=== PATIENT | male | born 1955 | race Caucasian/White ===

== ENCOUNTER 2016-12-12 23:20 | Emergency (ER) | payer BC ==
[~2016-12-12] VITALS: Ht 182.9 cm; Wt 95.0 kg
[~2016-12-12 23:20] MED LIST: LEVO.1 PO
[2016-12-12 23:57] VITALS: BP 139/82; PULSE 81; RESP 20; TEMP 97.5; O2SAT 98
[2016-12-13 00:22] LABS: AUTOMATED NEUTROPHIL # 5.1 TH/MM3 (1.8-7.7); BASOPHIL # 0.1 TH/MM3 (0-0.2); BASOPHIL % 0.8 % (0.0-2.0); EOSINOPHIL # 0.2 TH/MM3 (0-0.4); EOSINOPHIL % 2.2 % (0.0-4.0); HEMATOCRIT 46.4 % (39.0-51.0); HEMO FLAGS DIFF FINAL; LYMPH % 24.6 % (9.0-44.0); LYMPHOCYTE # 1.9 TH/MM3 (1.0-4.8); MEAN CELL VOLUME 91.8 FL (80.0-100.0); MEAN CORPUSCULAR HEMOGLOBIN 30.9 PG (27.0-34.0); MEAN CORPUSCULAR HGB CONC 33.7 % (32.0-36.0); MONO % 7.9 % (0.0-8.0); NEUT % 64.5 % (16.0-70.0); PLATELET COUNT 185 TH/MM3 (150-450); RED BLOOD COUNT 5.05 MIL/MM3 (4.50-5.90); RED CELL DISTRIBUTION WIDTH 13.8 % (11.6-17.2); WHITE BLOOD COUNT 7.8 TH/MM3 (4.0-11.0)
[2016-12-13 00:32] LABS: APTT (PATIENT) 27.5 SEC (24.3-30.1); PROTHROMBIN TIME - PATIENT 10.9 SEC (9.8-11.6)
--- NOTE | 2016-12-13 01:04 | RADRPT ---
EXAM DATE/TIME: 12/13/2016 00:42 [facility] COMPARISON: CT BRAIN W/O CONTRAST, July 01, 2016, 9:17. INDICATIONS : Found unresponsive. ETOH RADIATION DOSE: 69.15 CTDIvol (mGy) MEDICAL HISTORY : None SURGICAL HISTORY : None. ENCOUNTER: Initial ACUITY: 1 day PAIN SCALE: 0/10 LOCATION: cranial TECHNIQUE: Multiple contiguous axial images were obtained of the head. Using automated exposure control and adj ustment of the mA and/or kV according to patient size, radiation dose was kept as low as reasonably a chievable to obtain optimal diagnostic quality images. FINDINGS: CEREBRUM: The ventricles are normal for age. No evidence of midline shift, mass lesion, hemorrhage or acute in farction. No extra-axial fluid collections are seen. POSTERIOR FOSSA: The cerebellum and brainstem are intact. The 4th ventricle is midline. The cerebellopontine angle i s unremarkable. EXTRACRANIAL: The visualized portion of the orbits is intact. SKULL: The calvaria is intact. No evidence of skull fracture. CONCLUSION: Normal examination. Diffuse atrophy is unchanged. Trevor Ray MD on December 13, 2016 at 1:02 Board Certified Radiologist. This report was verified electronically.
--- NOTE | 2016-12-13 01:07 | RADRPT ---
EXAM DATE/TIME: 12/13/2016 00:42 [facility] COMPARISON: CT CERVICAL SPINE W/O CONTRAST, July 01, 2016, 9:17. INDICATIONS : Found unresponsive. ETOH RADIATION DOSE: 29.94 CTDIvol (mGy) MEDICAL HISTORY : None SURGICAL HISTORY : None. ENCOUNTER: Initial ACUITY: 1 day PAIN SCALE: 0/10 LOCATION: neck TECHNIQUE: Volumetric scanning of the cervical spine was performed. Multiplanar reconstructions in the sagittal, coronal and oblique axial planes were performed. Using automated exposure control and adjustment o f the mA and/or kV according to patient size, radiation dose was kept as low as reasonably achievable to obtain optimal diagnostic quality images. FINDINGS: VERTEBRAE: Normal vertebral body height. ALIGNMENT: No evidence of subluxation. C2-C3: The bony spinal canal is normal in size. No evidence of disc bulge or herniation. The neural forami na are bilaterally patent. C3-C4: The bony spinal canal is normal in size. No evidence of disc bulge or herniation. The neural forami na are bilaterally patent. C4-C5: The bony spinal canal is normal in size. No evidence of disc bulge or herniation. The neural forami na are bilaterally patent. C5-C6: The bony spinal canal is normal in size. No evidence of disc bulge or herniation. The neural forami na are bilaterally patent. C6-C7: The bony spinal canal is normal in size. No evidence of disc bulge or herniation. The neural forami na are bilaterally patent. C7-T1: The bony spinal canal is normal in size. No evidence of disc bulge or herniation. The neural forami na are bilaterally patent. CONCLUSION: Normal examination. Trevor Ray MD on December 13, 2016 at 1:05 Board Certified Radiologist. This report was verified electronically.
[2016-12-13 01:17] LABS: BICARBONATE 28.2 MEQ/L (21.0-32.0); POTASSIUM 3.8 MEQ/L (3.5-5.1)
--- NOTE | 2016-12-13 01:19 | RADRPT ---
EXAM DATE/TIME: 12/13/2016 00:44 [facility] COMPARISON: CT BRAIN W/O CONTRAST, December 13, 2016, 0:42. CT BRAIN W/O CONTRAST, July 01, 2016, 9:17. INDICATIONS : Found unresponsive. ETOH RADIATION DOSE: 36.81 CTDIvol (mGy) MEDICAL HISTORY : None SURGICAL HISTORY : None. ENCOUNTER: Initial ACUITY: 2 days PAIN SCORE: 0/10 LOCATION: facial TECHNIQUE: Volumetric scanning of the facial bones was performed. Using automated exposure control and adjustme nt of the mA and/or kV according to patient size, radiation dose was kept as low as reasonably achiev able to obtain optimal diagnostic quality images. FINDINGS: Both of the mandibular condyles are anterior to the fossa likely positionally related. ORBITS: The orbital and infraorbital osseous structures are intact. The retroconal structures have a normal configuration. No radiopaque foreign bodies are seen. NASAL BONE: The maxillary spine are intact. Small displacement of the left nasal bone is unchanged from 09/20. ZYGOMATIC ARCHES: Symmetric without evidence of fracture. SINUSES: The maxillary, ethmoid and frontal sinuses are intact. No air-fluid levels seen. NASAL CAVITY: The nasal septum is intact and midline. The lacrimal ducts are intact. SOFT TISSUES: No radiopaque foreign bodies seen. No soft-tissue swelling is seen. INTRACRANIAL: No intracranial air seen. CRIBIFORM PLATE: Grossly intact. CONCLUSION: Small lucency at the base of the left nasal bones unchanged since September 2014. Over the mandibular con dyles are anteriorly displaced compared to the fossa likely positional. Trevor Ray MD on December 13, 2016 at 1:14 Board Certified Radiologist. This report was verified electronically.
[2016-12-13 01:56] VITALS: BP 111/62; PULSE 76; RESP 16; O2SAT 93
--- NOTE | 2016-12-13 02:22 | PD ---
HPI Chief Complaint: Alcohol/Drug Intoxication Time Seen by Provider: 23:46 Travel History International Travel<30 days: No Contact w/Intl Traveler<30days: No Traveled to known affect area: No History of Present Illness HPI 61yo M with PMH of alcohol abuse here as [facility] act for alcohol intoxication. Pt was found in front of his apartment club [place] intoxicated. Pt admits to drinking a lot. Pt does have an abrasion in right maxilla that had stopped bleeding. Pt is following commands and moving all extremities. Denies any complaints. PFSH Past Medical History Medical History: Unable to Obtain Depression: Yes Thyroid Disease: Yes Tetanus Vaccination: Unknown Past Surgical History Surgical History: Unable to Obtain Appendectomy: Yes Social History Alcohol Use: Yes (TODAY VODKA) Tobacco Use: No Substance Use: No Allergies-Medications (Allergen,Severity, Reaction): Coded Allergies: No Known Allergies (Unverified , 12/12/16) Reported Meds & Prescriptions Reported Meds & Active Scripts Active Reported Synthroid (Levothyroxine Sodium) 100 Mcg Tab 100 Mcg PO DAILY Review of Systems ROS Limitations: Intoxication Physical Exam Narrative GENERAL: 61yo M not in distress. SKIN: Focused skin assessment warm/dry. HEAD: Atraumatic. Normocephalic. EYES: Pupils equal and round. No scleral icterus. No injection or drainage. ENT: No nasal bleeding or discharge. Mucous membranes pink and moist. NECK: Trachea midline. No JVD. CARDIOVASCULAR: Regular rate and rhythm. No murmur appreciated. RESPIRATORY: No accessory muscle use. Clear to auscultation. Breath sounds equal bilaterally. GASTROINTESTINAL: Abdomen soft, non-tender, nondistended. Hepatic and splenic margins not palpable. MUSCULOSKELETAL: No obvious deformities. No clubbing. No cyanosis. No edema. NEUROLOGICAL: Awake and alert. No obvious cranial nerve deficits. Motor grossly within normal limits. Normal speech. PSYCHIATRIC: Appropriate mood and affect; insight and judgment normal. Data Data Last Documented VS Vital Signs Date Time Temp Pulse Resp B/P Pulse Ox O2 Delivery O2 Flow Rate FiO2 12/13/16 01:56 76 16 111/62 93 Nasal Cannula 2 12/12/16 23:57 97.5 Orders Complete Blood Count With Diff (12/12/16 23:52) Basic Metabolic Panel (Bmp) (12/12/16 23:52) Alcohol (Ethanol) (12/12/16 23:52) Prothrombin Time / Inr (Pt) (12/12/16 23:52) Act Partial Throm Time (Ptt) (12/12/16 23:52) Ct Brain W/O Iv Contrast(Rout) (12/12/16 ) Ct Facial Bones W/O Iv Cont (12/12/16 ) Ct Cerv Spine W/O Contrast (12/13/16 ) Tetanus/Diphtheria Tox Adult (Tetanus/Di (12/13/16 02:30) Thiamine Inj (Thiamine Inj) (12/13/16 02:30) Labs Laboratory Tests Test 12/13/16 12/13/16 00:10 00:50 White Blood Count 7.8 TH/MM3 Red Blood Count 5.05 MIL/MM3 Hemoglobin 15.6 GM/DL Hematocrit 46.4 % Mean Corpuscular Volume 91.8 FL Mean Corpuscular Hemoglobin 30.9 PG Mean Corpuscular Hemoglobin 33.7 % Concent Red Cell Distribution Width 13.8 % Platelet Count 185 TH/MM3 Mean Platelet Volume 9.0 FL Neutrophils (%) (Auto) 64.5 % Lymphocytes (%) (Auto) 24.6 % Monocytes (%) (Auto) 7.9 % Eosinophils (%) (Auto) 2.2 % Basophils (%) (Auto) 0.8 % Neutrophils # (Auto) 5.1 TH/MM3 Lymphocytes # (Auto) 1.9 TH/MM3 Monocytes # (Auto) 0.6 TH/MM3 Eosinophils # (Auto) 0.2 TH/MM3 Basophils # (Auto) 0.1 TH/MM3 CBC Comment DIFF FINAL Differential Comment Prothrombin Time 10.9 SEC Prothromb Time International 1.0 RATIO Ratio Activated Partial 27.5 SEC Thromboplast Time Sodium Level 145 MEQ/L Potassium Level 3.8 MEQ/L Chloride Level 106 MEQ/L Carbon Dioxide Level 28.2 MEQ/L Anion Gap 11 MEQ/L Blood Urea Nitrogen 18 MG/DL Creatinine 0.86 MG/DL Estimat Glomerular Filtration 90 ML/MIN Rate Random Glucose 94 MG/DL Calcium Level 8.0 MG/DL Ethyl Alcohol Level 342 MG/DL [facility] Medical Decision Making Medical Screen Exam Complete: Yes Emergency Medical Condition: Yes Differential Diagnosis Alcohol intoxication Narrative Course 61yo M brought in for alcohol intoxication. Labs reviewed, no leukocytosis. Blood alcohol 342. CT cspine showed normal examination. CT brain showed normal examination. CT maxilla showed small lucency at base of left nasal bones unchanged. Mandibular condyles anteriorly displaced, likely positional. Pt has no malocclusion and can open and close jaw. Pt has been observed in the ED and is now clinically sober. Ambulating in the ED without assistance. Return precautions given. Diagnosis Primary Impression: Alcohol intoxication Qualified Code: F10.920 - Alcohol intoxication, uncomplicated Patient Instructions: General Instructions Departure Forms: Tests/Procedures Additional Instructions: Please follow up with your PMD in 3-7 days. Return to the ED if symptoms worsen. Med/Other Pt SpecificInfo: No Change to Meds Disposition: 01 DISCHARGE HOME Condition: Stable CariasDonna sosimin CHUNG Dec 13, 2016 02:21
[2016-12-13] MEDS ORDERED: THIAMINE INJ 100 MG in SODIUM CHLORIDE 0.9% INJ 100 ML IV ONE (02:30)
[2016-12-13] MEDS ORDERED: TETANUS/DIPHTHERIA TOXOID ADULT 0.5 ML VIAL IM ONE (02:30)
== END 2016-12-13 06:15 | disposition home or self-care (01) ==
LOC: NEPC 23:20
DX: F10.120 Alcohol abuse with intoxication, uncomplicated (principal); Z23 Encounter for immunization; F32.9 Major depressive disorder, single episode, unspecified; E07.9 Disorder of thyroid, unspecified
CPT/HCPCS: 70450; 70486; 72125; 80048; 80307; 85025; 85610; 85730; 90471; 90714; 96365; 99285; J3411